=== PATIENT | female | born 1965 | race American Indian/Alaskan Native ===

== ENCOUNTER 2018-09-10 09:16 | Outpatient (CLI) | payer OTHER | END 2018-09-10 09:17 | disposition home or self-care (01) | LOC: ECHO 09:16 | PROVIDERS: ATTEND Internal Medicine Cardiovascular Disease | DX: I25.10 Atherosclerotic heart disease of native coronary artery without angina pectoris (principal); E78.5 Hyperlipidemia, unspecified; I10 Essential (primary) hypertension | CPT/HCPCS: 93017; 93320; 93325; 93350 ==